=== PATIENT | female | born 1950 | race Caucasian/White ===

== ENCOUNTER 2017-10-16 05:43 | Emergency (ER) | payer OTHER ==
[~2017-10-16] VITALS: Ht 152.4 cm; Wt 55.2 kg
[~2017-10-16 05:43] MED LIST: ALEN70TA30 PO; ASPI-664 PO; ATOR10TA65 PO; CYCL-319 PO; HYDR-3498 PO; MTF1000T PO; ONDA4TAB8 PO; VERA240T94 PO
[2017-10-16 05:51] VITALS: Ht 152.4 cm; Wt 55.2 kg
[2017-10-16] MEDS ORDERED: CYCL5TAB PO (07:24)
[2017-10-16] MEDS ORDERED: PRED20TA PO (07:24)
--- NOTE | 2017-10-16 07:34 | ERD ---
ER Documentation Chief Complaint Chief Complaint pain back of neck x 2 days. denies injury HPI 66-year-old female with a history of diabetes and hypertension comes emergency department bilateral upper neck pain rating to her upper back for 2 days after lifting a water jug. Patient states that she lifted from the ground, and then developed pain to bilateral base of neck region going to her upper back. She describes as achy, and is requesting a cortisone shot. Patient describes the pain to be bilateral going to her bilateral shoulders and upper back as well. The patient states that her pain is improved with ibuprofen. She has a history of a shoulder replacement on the right side, otherwise no surgical history. Pain is worse with movement, described as achy reproduced when she either moves her neck, back or shoulder. She denies chest pain, shortness of breath, and good. Dizziness. ROS All systems reviewed and are negative except as per history of present illness. Medications Home Meds Active Scripts Cyclobenzaprine Hcl* (Cyclobenzaprine Hcl*) 5 Mg Tablet, 5 MG PO Q8H Y for PAIN , #15 TAB Prov:BETTY HERNANDEZ PA-C 10/16/17 Prednisone* (Prednisone*) 20 Mg Tab, 40 MG PO DAILY for 5 Days, TAB Prov:BETTY HERNANDEZ PA-C 10/16/17 Cyclobenzaprine Hcl* (Cyclobenzaprine Hcl*) 10 Mg Tablet, 10 MG PO TID, #15 TAB Prov:AYANA SULLIVAN NP 03/16/16 Hydrocodone Bit-Acetaminophen* (Sidney*) 5-325 Mg Tab, 1 TAB PO Q6 Y for PAIN, # 20 TAB Prov:AYANA SULLIVAN NP 03/16/16 Hydrocodone Bit-Acetaminophen* (Sidney*) 5-325 Mg Tab, 1 TAB PO Q6 Y for PAIN, # 20 TAB Prov:MINNA JACOBS DO 12/05/15 Ondansetron Hcl* (Zofran*) 4 Mg Tablet, 4 MG PO Q6H for NAUSEA AND/OR VOMITING, #14 TAB Prov:MINNA JACOBS DO 12/05/15 Reported Medications Alendronate Sodium* (Fosamax*) 70 Mg Tablet, 70 MG PO Q7D, #4 TAB 12/05/15 Aspirin* (Aspirin* EC) 81 Mg Tablet.dr, 81 MG PO DAILY, TAB 2/14/16 Atorvastatin Calcium (Atorvastatin Calcium) 10 Mg Tablet, 10 MG PO QHS, #30 TAB 12/05/15 Metformin* (Glucophage*) 1,000 Mg Tablet, 1000 MG PO BID WITH MEALS, #30 TAB 12/05/15 Verapamil Hcl* (Verapamil ER*) 240 Mg Tablet.er, 240 MG PO DAILY, TAB.SA 12/05/15 Allergies Allergies: Coded Allergies: No Known Allergy (Unverified , 10/16/17) PMhx/Soc History of Surgery: Yes (Cholecystectomy,,Tummy Tuck,Brain Clipping) Anesthesia Reaction: No Hx Neurological Disorder: Yes (Ruptured Brain Aneurysm) Hx Respiratory Disorders: No Hx Cardiac Disorders: Yes (HTN) Hx Miscellaneous Medical Probl: Yes (DM2,Dyslipidemia,Gallstones) Hx Alcohol Use: No Hx Substance Use: No Hx Tobacco Use: No Physical Exam Vitals Vital Signs Date Time Temp Pulse Resp B/P Pulse Ox O2 Delivery O2 Flow Rate FiO2 10/16/17 05:51 98.1 82 20 153/77 99 Physical Exam General: Well-developed, well-nourished. The patient appears in no acute distress. HEENT: Head is normocephalic, atraumatic. No scleral icterus. Neck: Supple. No midline tenderness or crepitus, the patient is full range of motion with lateral rotation flexion-extension. She is reproducible pain at the lateral portion of bilateral base of neck regions. The pain is reproduced when she moves her left shoulder. Lungs: Clear to auscultation. Normal air movement. Heart: Regular rate and rhythm. S1 and S2 are normal. No murmurs, gallops, or rubs. Abdomen: Soft, nontender, nondistended. Bowel sounds are normoactive. Extremities: No clubbing or cyanosis. Normal pulses. Moving extremities x 4. No weakness. Neurologic: Alert and oriented 3. No focal deficits. Skin: Normal turgor. No rash or lesions. Procedures/MDM ED COURSE: EKG: Reviewed by Dr. Brown Rate/Rhythm: Normal Sinus Rhythm, rate of 78 QRS, ST, T-waves: No changes consistent w/ acute ischemia Impression: No evidence of ischemia or arrhythmia [employer]ISION [employer]-year-old female comes in with bilateral base of neck pain going to her back, the patient's pain is most consistent with musculoskeletal pain. EKG was done that shows no signs of ischemia, or STEMI. Her history is not concerning for acute coronary syndrome, the pain is reproduced with movement, and it was exacerbated after lifting a water jug. Her pain is reproduced when I palpate over her neck as well as her back, there is no midline pain, and no history of trauma to indicate radiographic imaging of the cervical spine. Suspicion for acute coronary syndrome, dissection, stroke, meningitis, encephalitis, transverse myelitis is low. She is currently requesting a cortisone shot for her neck pain, I have spoken with the patient, notify that this is not an ordinary treatment that is done in the emergency department. I will offer her prednisone, and Flexeril as well. She is taking ibuprofen which advised to also continue every 6-8 hours. Patient's blood pressure was elevated (>120/80) but appears stable without evidence of hypertension emergency or urgency. The patient was counseled about the risks of hypertension and urged to pursue outpatient monitoring and therapy within a week with their primary care physician. Departure Diagnosis: Primary Impression: Neck pain Condition: Good Patient Instructions: Neck Sprain/Strain BETTY HERNANDEZ PA-C Oct 16, 2017 07:34
== END 2017-10-16 07:30 | disposition home or self-care (01) ==
LOC: FTE 05:43
DX: M54.2 Cervicalgia (principal); I10 Essential (primary) hypertension; E11.9 Type 2 diabetes mellitus without complications; Z79.84 Long term (current) use of oral hypoglycemic drugs; Z79.82 Long term (current) use of aspirin
CPT/HCPCS: 93005

== ENCOUNTER 2017-11-12 04:45 | Emergency (ER) | END 2017-11-12 06:33 | disposition home or self-care (01) ==

== ENCOUNTER 2018-02-23 23:30 | Emergency (ER) | END 2018-02-23 23:40 | disposition left against medical advice (07) ==

== ENCOUNTER 2018-08-02 23:08 | Emergency (ER) | END 2018-08-03 00:50 | disposition home or self-care (01) ==